=== PATIENT | female | born 1940 | race Caucasian/White ===

== ENCOUNTER 2016-09-10 11:09 | Observation (INO) | payer MEDICARE ==
--- NOTE | ~2016-09-10 | DS ---
Discharge Summary [facility] [address] [place]. [address] NAME: BEAU MENDIETA : 42 STATUS : DIS Judi PAT#: [id number] AGE: 76 ADM/REG DATE : 09/10/16 MR#: [id number] REPORT SERV DATE: 09/13/16 DICTATED BY: JR. GARCIA WILLIAM JOHN DATE: 09/12/16 REPORT STATUS : Draft TRANSCRIBED BY: MODGloria DATE: 09/12/16 ADMISSION DATE: 09/10/2016 DISCHARGE DATE: 09/12/2016 DISCHARGE DIAGNOSES: Include: 1. Altered mental status. 2. Escherichia coli urinary tract infection. 3. Acute kidney injury. OPERATIONS, PROCEDURES, AND TREATMENTS: Include: 1. Urine culture done 09/10/2016, which grew Escherichia coli, sensitive to multiple antimicrobials including nitrofurantoin, gentamicin, cefuroxime, tobramycin, aztreonam, ciprofloxacin, and Zosyn. 2. Blood cultures x2 done 09/10/[address] 3[address] CT of the brain without contrast done 09/11/2015, which showed severe cerebral atrophy without acute abnormality. 4. Portable chest x-ray done 09/11/2015, which showed probable subsegmental atelectasis at the left lateral lung base. Otherwise, no acute cardiopulmonary disease. DISCHARGE MEDICATIONS: 1. Vitamin B12, 2000 mcg orally daily. 2. Aricept 10 mg orally daily. 3. Ferrous sulfate 325 mg orally twice a day. 4. Folate 1 mg orally daily. 5. Namenda 10 mg orally daily. 6. Zocor 20 mg orally daily. 7. Cefuroxime 500 mg twice a day for five days. HOSPITAL COURSE: The patient is a 76-year-old white female, presented to [facility] emergency room on 09/10/2016 from [facility] with decreased level of consciousness. At that time, there was very little history known. Physical exam was remarkable for temperature 99.9, blood pressure 114/43, heart rate 77, respiratory rate 14. The patient was nonverbal and sleepy. Initial arterial blood gas showed a pH of 7.43, pCO2 of 40, PO2 of 142, BUN was 42, creatinine 1.53. White count of 16.6. Urinalysis showed pyuria. The patient is admitted to the Clinical Decision Unit for altered mental status secondary to urinary tract infection. She was empirically placed on Rocephin after urine cultures were obtained. Urine cultures eventually grew Escherichia coli, was sensitive to cefuroxime amongst others as above. The patient's mental status had improved. She actually had friends and family visit who were familiar with her baseline and felt that she was better than her baseline on the final day of hospitalization. The patient's acute kidney injury, this resolved with IV fluids. The patient will be discharged back to [facility] to complete five Discharge Summary [address] [address] NAME: BEAU MENDIETA : 42 STATUS : DIS Judi PAT#: [id number] AGE: 76 ADM/REG DATE : 09/10/16 MR#: [id number] REPORT SERV DATE: 09/13/16 DICTATED BY: JR. GARCIA WILLIAM JOHN DATE: 09/12/16 REPORT STATUS : Draft TRANSCRIBED BY: MONISHA DATE: 09/12/16 additional days of cefuroxime. Would recommend stopping the sedating medicines such as trazodone, etc. I have stopped all these on the discharge MAR. For discharge exam and laboratory, please see daily progress note. DISCHARGE DIET: Regular. ACTIVITY: As prior. Follow up with facility physician. This discharge took 34 minutes for patient encounter, coordination of care, and documentation. WHEATHER/MONISHA Ren Garcia Jr, MD / [id number] CC: Ren Garcia Jr, MD
--- NOTE | ~2016-09-10 | HP ---
History And Physical [address] [address] NAME: BEAU MENDIETA : 42 STATUS : ADM Judi PAT#: [id number] AGE: 76 ADM/REG DATE : 09/10/16 MR#: [id number] REPORT SERV DATE: 09/10/16 DICTATED BY: ROBERTO MARTINEZ DATE: 09/10/16 REPORT STATUS : Draft TRANSCRIBED BY: MODL DATE: 09/10/16 DATE OF ADMISSION: 09/10/2016 CHIEF COMPLAINT: Sedation, UTI. HISTORY OF PRESENT ILLNESS: The patient is a 76-year-old female. History is obtained from the ER physician, the patient's nursing contact in the hospital and will return to the room shortly. Apparently the patient lives in an assisted living arrangement with the assistance of her friend and nurse. She was brought to the hospital for decreased level of consciousness. Evaluation at this point notes some acute kidney injury with a creatinine of 1.53, a white count of 16,000 and UTI. The patient is unable to give any history at the current time. PAST MEDICAL HISTORY: Unknown. Review of her medications would indicate dementia as she is on Aricept and Namenda. She is also on Seroquel, Risperdal, and Zoloft and does really suspect if she has some behavior issues from the dementia. PAST SURGICAL HISTORY: None. MEDICATIONS: Vitamin B12; Aricept 10; iron 325 b.i.d.; folic acid 1 mg; Namenda 10 at bedtime; Seroquel 25; Risperdal 0.5 b.i.d.; Zoloft 100; Zocor 20; and Desyrel 50. ALLERGIES: NONE. FAMILY HISTORY: Unobtainable. SOCIAL HISTORY: Unobtainable. REVIEW OF SYSTEMS: Unobtainable. PHYSICAL EXAMINATION: OBJECTIVE ON EXAM: VITAL SIGNS: Blood pressure 114/43 at presentation, current blood pressures are in the one-teens over 50s, temperature 99.9, pulse 77, respirations 14, and sat 94%. GENERAL: She is arousable to tactile and verbal stimuli. She opens her eyes. She is nonverbal. She will drift back to sleep if not stimulated. HEENT: Normocephalic, atraumatic. Sclerae nonicteric. NECK: Supple. HEART: Regular rate and rhythm. LUNGS: Clear to auscultation. ABDOMEN: She does not seem to react to pain. No guarding or rebound. EXTREMITIES: No significant clubbing, cyanosis, or edema. History And Physical [address] [address] NAME: BEAU MENDIETA : 42 STATUS : ADM Judi PAT#: [id number] AGE: 76 ADM/REG DATE : 09/10/16 MR#: [id number] REPORT SERV DATE: 09/10/16 DICTATED BY: ROBERTO MARTINEZ DATE: 09/10/16 REPORT STATUS : Draft TRANSCRIBED BY: MODL DATE: 09/10/16 LABORATORY DATA: ABG, pH 7.43, CO2 of 40, O2 of 142, sat 99.2%. Sodium 143, potassium 3.5, chloride 104, CO2 of 28, BUN and creatinine of 42 and 1.53 with a glucose of 157. Troponins 0.02. LFTs are AST and ALT 40 and 16 respectively. Lactate is 0.7. White count 16.6, H and H are 11.2 and 35.2, and platelets 149. Urine obtained of newly inserted Deluca catheter was positive for wbc's and UTI. Blood and urine cultures are currently pending. CT brain was negative. Chest x-ray shows some potential left lower lobe atelectasis otherwise unremarkable. EKG was sinus rhythm without acute ischemic changes. ASSESSMENT: Altered mental status in the patient with some suspected dementia and behavior problems according to history from the ER. PLAN: 1. The patient has been admitted. 2. She has already received a liter of IV fluid and a gram of Rocephin. We will continue IV fluids as needed for blood pressure support. We will clarify any advanced directives per her caregivers who will be at the room shortly. Await blood and urine cultures. We will hold her sedatives as the combination of the medications and her renal insufficiency may be causing some of this sedation. Monitor blood pressure closely. Hopefully she will respond to fluids. ALEJANDROF/MONISHA Roberto Martinez M.D. / [id number] CC: Ren Garcia Jr, MD
[2016-09-10 11:35] LABS: ALLENS TEST Pos; BE (BASE EXCESS) 1.9 MEQ/L (0 +/- 2.5); CARBOXYHEMOGLOBIN 1.4 % (0-3); DEVICE NC; HCO3 (ACTUAL BICARBONATE) 26.2 MEQ/L (23-27); HEMOBLOGIN CONTENT 13.7 G/DL (12-16); INSTRUMENT SERIAL # 8087; METHEMOGLOBIN 0.2 % (0-3); OPERATOR ID 14335; PCO2 (CO2 TENSION) 40 MMHG (35-45); PO2 (O2 TENSION) 142 MMHG (79-93); SAMPLE Arterial; pH 7.43 (7.37-7.43)
[2016-09-10] MEDS ORDERED: FOLIC PO (11:48)
[2016-09-10] MEDS ORDERED: ZOL100 PO (11:49)
[2016-09-10] MEDS ORDERED: CYANO1000T PO (11:49)
[2016-09-10] MEDS ORDERED: FERROUS SULF325 M1 PO (11:49)
[2016-09-10] MEDS ORDERED: NAMENDA10 MG PO (11:50)
[2016-09-10] MEDS ORDERED: ARICEPT10 PO (11:50)
[2016-09-10] MEDS ORDERED: RISP0.5 PO (11:50)
[2016-09-10] MEDS ORDERED: TRAZ50 PO (11:51)
[2016-09-10] MEDS ORDERED: ZOCOR20 PO (11:51)
[2016-09-10] MEDS ORDERED: SEROQUEL25 PO (11:51)
[2016-09-10 12:22] LABS: BASOPHILS 0.1 %; BASOPHILS ABSOLUTE 0.01 10/3/uL (0.0-0.16); EOSINOPHILS 0.1 %; EOSINOPHILS ABSOLUTE 0.02 10/3/uL (0.0-0.53); ER CBC TAT 0 Hrs 05 Mins; HEMATOCRIT 35.2 % (36.0-48.0); HEMOGLOBIN 11.2 g/dL (12.0-16.0); IMMATURE GRANULOCYTES 0.2 %; IMMATURE GRANULOCYTES ABSOLUTE 0.03 10/3/uL (0.0-0.11); LYMPHOCYTES 6.1 %; LYMPHOCYTES ABSOLUTE 1.01 10/3/uL (0.67-4.30); MEAN CORPUS HGB CONC 31.8 g/dL (32.0-36.0); MEAN CORPUSCULAR HEMOGLOB 28.3 pg (26.0-34.0); MEAN CORPUSCULAR VOLUME 88.9 fL (80-100); MONOCYTES 8.4 %; NEUTROPHILS 85.1 %; NEUTROPHILS ABSOLUTE 14.14 10/3/uL (2.02-8.40); PLATELET COUNT 149 10/3/uL (150-400); RED CELL COUNT 3.96 10/6/uL (4.0-5.6); WHITE BLOOD CELLS 16.6 10/3/uL (4.5-10.5)
[2016-09-10 12:23] LABS: MANUAL DIFF NO %
[2016-09-10 12:29] LABS: INTERNATIONAL NORMAL RATI 1.3 UNITS (-); PROTIME (NOT ORD) 16.4 SEC (12.0-14.5)
[2016-09-10 12:40] LABS: A/G RATIO 0.5 (0.7-1.9); ALBUMIN 2.5 G/DL (3.5-5.0); ALKALINE PHOSPHATASE 80 U/L (45-117); BUN (BLOOD UREA NITROGEN) 42 MG/DL (6-23); CALCIUM, SERUM 8.9 MG/DL (8.5-10.4); CHLORIDE, SERUM 104 MMOL/L (96-112); CO2 (CARBON DIOXIDE) 28 MMOL/L (24-34); CREATININE 1.53 MG/DL (0.55-1.02); GFR AFRICAN AMERICAN 38 ML/MIN (>=60); GFR NON AFRICAN AMERICAN 33 ML/MIN (>=60); GLUCOSE, SERUM 157 MG/DL (60-99); POTASSIUM, SERUM 3.5 MMOL/L (3.5-5.3); SGOT(AST) 40 U/L (5-40); SGPT(ALT) 16 U/L (5-65); SODIUM, SERUM 143 MMOL/L (135-148); TOTAL BILIRUBIN 1.1 MG/DL (0-1.2); TOTAL PROTEIN 7.5 G/DL (6.0-8.5); TROPONIN I 0.02 NG/ML (<0.05)
[2016-09-10 12:45] LABS: ASCORBIC ACID (UR NOT ORDER) NEG (NEG); BILIRUBIN, URINE NEGATIVE (NEG); ER URINALYSIS TAT 0 Hrs 11 Mins; KETONE, URINE NEGATIVE (NEG); LEUKOCYTE ESTERASE(NOT OR LARGE (NEG); NITRITE (URINE) NEG (NEG); WBC (NOT ORDERED) (RFLEX) > 182 (0-5)
[2016-09-10 17:59] LABS: PROCALCITONIN 5.22 ng/mL (<0.5)
[2016-09-12 05:45] LABS: BASOPHILS 0.2 %; BASOPHILS ABSOLUTE 0.02 10/3/uL (0.0-0.16); EOSINOPHILS 1.2 %; EOSINOPHILS ABSOLUTE 0.14 10/3/uL (0.0-0.53); HEMATOCRIT 32.8 % (36.0-48.0); HEMOGLOBIN 10.3 g/dL (12.0-16.0); IMMATURE GRANULOCYTES 0.3 %; IMMATURE GRANULOCYTES ABSOLUTE 0.04 10/3/uL (0.0-0.11); LYMPHOCYTES 10.8 %; LYMPHOCYTES ABSOLUTE 1.27 10/3/uL (0.67-4.30); MEAN CORPUS HGB CONC 31.4 g/dL (32.0-36.0); MEAN CORPUSCULAR HEMOGLOB 28.3 pg (26.0-34.0); MEAN CORPUSCULAR VOLUME 90.1 fL (80-100); MEAN PLATELET VOLUME 13.3 fL (9.2-13.0); MONOCYTES 5.8 %; MONOCYTES ABSOLUTE 0.68 10/3/uL (0.21-1.20); NEUTROPHILS 81.7 %; NEUTROPHILS ABSOLUTE 9.61 10/3/uL (2.02-8.40); PLATELET COUNT 166 10/3/uL (150-400); RBC DISTRIBUTION WIDTH 14.6 % (12.0-16.0); RED CELL COUNT 3.64 10/6/uL (4.0-5.6); WHITE BLOOD CELLS 11.8 10/3/uL (4.5-10.5)
[2016-09-12 05:46] LABS: MANUAL DIFF NO %
[2016-09-12 06:10] LABS: BUN (BLOOD UREA NITROGEN) 17 MG/DL (6-23); CALCIUM, SERUM 8.5 MG/DL (8.5-10.4); CHLORIDE, SERUM 111 MMOL/L (96-112); CO2 (CARBON DIOXIDE) 24 MMOL/L (24-34); CREATININE 0.81 MG/DL (0.55-1.02); GFR AFRICAN AMERICAN 82 ML/MIN (>=60); GFR NON AFRICAN AMERICAN 71 ML/MIN (>=60); GLUCOSE, SERUM 136 MG/DL (60-99); POTASSIUM, SERUM 3.2 MMOL/L (3.5-5.3); SODIUM, SERUM 146 MMOL/L (135-148)
[2016-09-12] MEDS ORDERED: CEFT5 PO (16:13)
[2016-12-20] MEDS ORDERED: FOLIC PO (23:04)
[2016-12-20] MEDS ORDERED: ZOL100 PO (23:04)
[2016-12-20] MEDS ORDERED: FERROUS SULF325 M1 PO (23:05)
[2016-12-20] MEDS ORDERED: CYANO1000T PO (23:05)
[2016-12-20] MEDS ORDERED: ARICEPT10 PO (23:06)
[2016-12-20] MEDS ORDERED: NAMENDA10 MG PO (23:06)
[2016-12-20] MEDS ORDERED: RISP0.5 PO (23:06)
[2016-12-20] MEDS ORDERED: ZOCOR10 PO (23:06)
[2016-12-25] MEDS ORDERED: LEVAQUIN750 MG PO (14:20)
== END 2016-09-12 16:40 ==
LOC: ER 11:09 → CDU1 14:39 → CDU2 14:53
PROVIDERS: Emergency Medicine; Internal Medicine
DX: R41.82 Altered mental status, unspecified (principal); N39.0 Urinary tract infection, site not specified; B96.20 Unspecified Escherichia coli [E. coli] as the cause of diseases classified elsewhere; N17.9 Acute kidney failure, unspecified; Z90.710 Acquired absence of both cervix and uterus
CPT/HCPCS: 36600; 70450; 71010; 80048; 80053; 81001; 82805; 82962; 83036; 83605; 84145; 84484; 85025; 85610; 87040; 87077; 87086; 87186; 93005; 96372; 96374; 96376; 99285; A9270-GY; G0378; J2405